=== PATIENT | female | born 1990 | race Caucasian/White ===

== ENCOUNTER 2022-03-19 05:32 | Emergency (ER) | payer MEDICARE ==
[2022-03-19] MEDS ORDERED: Sodium Chloride 0.9% 2.5 ML Syringe FLUSH PRN (05:35)
[2022-03-19] MEDS ORDERED: Sodium Chloride 0.9% 10 ML Syringe FLUSH PRN (05:35)
[2022-03-19] MEDS ORDERED: LORazepam 2 MG/ML SDV IVPUSH ONE (05:36)
[2022-03-19] MEDS ORDERED: Sodium Chloride 0.9% 1,000 ML IV ONE (05:36)
[2022-03-19 06:39] LABS: BLOOD UREA NITROGEN,BUN 11 mg/dL (7.0-18.0); CARBON DIOXIDE,CO2 27.7 mmol/L (21.0-32.0); CHLORIDE,CL 104 mmol/L (98-107); GLUCOSE RANDOM 93 mg/dL (74-106); POTASSIUM,K 3.8 mmol/L (3.5-5.1); SODIUM,NA 142 mmol/L (136-145)
[2022-03-19 06:57] LABS: ESTIMATED GFR 87 mL/min (>60)
[2022-03-19 07:18] VITALS: BP 120/79; PULSE 83
== END 2022-03-19 07:16 | disposition home or self-care (01) ==
LOC: MW.ED 05:32
DX: G40.909 Epilepsy, unspecified, not intractable, without status epilepticus (principal); Z88.6 Allergy status to analgesic agent; Z79.899 Other long term (current) drug therapy; Z20.822 Contact with and (suspected) exposure to COVID-19
CPT/HCPCS: 36415; 80053; 80307; 82947; 83605; 83735; 84443; 84703; 85025; 93005; 96360; 99285; J7030; U0002